=== PATIENT | female | born 1955 | race Caucasian/White ===

== ENCOUNTER 2018-10-05 06:52 | Day surgery (SDC) | payer OTHER ==
[2018-10-03 16:07] VITALS: BMI 37.3
[~2018-10-05] VITALS: Ht 147.3 cm; Wt 79.8 kg
[2018-10-05] VITALS (12 sets, daily range): BP systolic 135–162; BP diastolic 58–101; PULSE 64–79; RESP 15–29; Ht 147.3 cm; Wt 79.8 kg
[~2018-10-05 06:52] MED LIST: CEFAZOLIN 2 GM/50 ML (PMX) 50 ML IVPB SCH; SOD CHLORIDE 0.9% 1,000 ML IV SCH
[2018-10-05] MEDS ORDERED: SOD CHLORIDE 0.9% 1,000 ML IV SCH (07:00)
[2018-10-05] MEDS ORDERED: CEFAZOLIN 2 GM/50 ML (PMX) 50 ML IVPB ONE (07:00)
[2018-10-05] MEDS ORDERED: OMEP20CA16 PO (08:04)
[2018-10-05] MEDS ORDERED: IBUP200C11 PO (08:04)
[2018-10-05] MEDS ORDERED: HYDR-3980 PO (08:04)
--- NOTE | 2018-10-05 10:05 | PREAC ---
Date/Time of Note Date/Time of Note DATE: 10/05/18 TIME: 10:04 Anesthesia Eval and Record Evaluation Time Pre-Procedure Interview DATE: 10/05/18 TIME: 10:04 Age 63 Sex female NPO: 8 hrs Preoperative diagnosis incisional hernia Planned procedure lap hernia repair Past Medical History Past Medical History: Includes Cardio: Dyslipidemia Musculoskeletal: Osteoarthritis GI: GERD, Morbid obesity Psych: Depression, Anxiety Surgery & Anesthesia Issues No known issue Meds Anticoagulation: No Beta Simeon within 24 hr: No Reason Beta Simeon not given: Pt. not on B-Simeon Reported Medications Omeprazole* (Omeprazole*) 20 Mg Capsule.dr, 20 MG PO DAILY, #30 CAP 10/05/18 Hydrocodone/Acetaminophen ([place] 10-325 Tablet) 1 Each Tablet, 1 EACH PO QID for PAIN, TAB 10/05/18 Ibuprofen* (Advil*) 200 Mg Capsule, 200 MG PO Q6H PRN for PAIN, CAP 10/05/18 Current Medications Sodium Chloride 1,000 ml @ 75 mls/hr [id number] IV ; Start 10/05/18 at 07:00; Stop 10/05/18 at 20:19 Influenza Virus Vaccine Quadrival (Fluzone) 0.5 ml ONCE ONCE IM* ; Start 10/08/18 at 10:00; Stop 10/08/18 at 10:01 Meds reviewed: Yes Allergies Coded Allergies: No Known Allergy (Unverified , 10/05/18) Allergies Reviewed: Yes Labs/Studies Labs Reviewed: Reviewed by anesthesiologist test: Negative Studies: ECG Pre-procedure Exam Last vitals Vital Signs Date Temp Pulse Resp B/P (MAP) Pulse Ox O2 O2 Flow FiO2 Time Delivery Rate 10/05/18 96.3 79 16 146/61 96 07:57 (89) Airway: Adequate mouth opening, Adequate thyromental dist Mallampati: Mallampati II Teeth: Normal Lung: Normal Heart: Normal ASA Physical Status ASA physical status: 3 Emergency: None Planned Anesthetic General/MAC: ETT Nerve block: TAP (bilateral) Pre-operative Attestations Prior to commencing anesthesia and surgery, the patient was re-evaluated, there was verification of: *The patient's identity *The results of appropriate recent lab work and preoperative vital signs *The above evaluation not changing prior to induction *Anesthetic plan, risk benefits, alternative and complications discussed with patient/family; questions answered; patient/family understands, accepts and wishes to proceed. DAMIAN WHEAT Oct 05, 2018 10:05
[2018-10-05] MEDS ORDERED: POLYMYXIN/BACITRACIN 1L IRRIG ONE (10:06)
[2018-10-05] MEDS ORDERED: ROPIVACAINE 0.5 % 30 ML VIAL ONE (10:11)
[2018-10-05] MEDS ORDERED: FENTAnyl 50 MCG/ML VIAL ONE (10:11)
[2018-10-05] MEDS ORDERED: DIPHENHYDRAMINE 50 MG INJ IV PRN (10:30)
[2018-10-05] MEDS ORDERED: ALBUTEROL 0.083% (NEB) 2.5 MG/3 ML AMP HHN PRN (10:30)
[2018-10-05] MEDS ORDERED: ONDANSETRON 4 MG INJ IV PRN (10:30)
[2018-10-05] MEDS ORDERED: OXYCODONE/ACETAMINOPHEN (5/325) TAB PO PRN (10:30)
[2018-10-05] MEDS ORDERED: METOCLOPRAMIDE 10 MG INJ IV PRN (10:30)
[2018-10-05] MEDS ORDERED: FENTAnyl 50 MCG/ML VIAL IV PRN ×3 (10:30)
[2018-10-05] MEDS ORDERED: HYDROmorphONE 1 MG/5 ML IV SYRINGE IV PRN ×3 (10:30)
[2018-10-05] MEDS ORDERED: MEPERIDINE 25 MG INJ IV PRN (10:30)
[2018-10-05] MEDS ORDERED: LIDOCAINE 2% (SDV) 5 ML INJ ONE (11:00)
[2018-10-05] MEDS ORDERED: DESFLURANE 15 MIN ONE (11:00)
[2018-10-05] MEDS ORDERED: CEFAZOLIN 1 GM INJ ONE (11:03)
[2018-10-05] MEDS ORDERED: GLYCOPYRROLATE 0.4 MG INJ ONE (11:03)
[2018-10-05] MEDS ORDERED: ROCURONIUM 50 MG INJ ONE (11:03)
[2018-10-05] MEDS ORDERED: NEOSTIGMINE 3 MG/3 ML SYRINGE ONE (11:03)
[2018-10-05] MEDS ORDERED: SUCCINYLCHOLINE CHLORIDE 100 MG/5 ML SYG IV ONE (11:03)
[2018-10-05] MEDS ORDERED: PROPOFOL 20 ML ONE (11:03)
[2018-10-05] MEDS ORDERED: LIDOCAINE 100 MG SYRINGE ONE (11:03)
--- NOTE | 2018-10-05 11:09 | OPR ---
Date/Time of Note Date/Time of Note DATE: 10/05/18 TIME: 11:05 Operative Report Procedure Date: Oct 05, 2018 Preoperative Diagnosis incarcerated incisional hernia Postoperative Diagnosis same Operation/Procedure Performed 1. laparoscopic incisional hernia repair 2. implantation of polypropylene 15 x 15 cm mesh 3. laparoscopic lysis of adhesions Surgeon see signature line [employer] Service Attendant Gregory Villareal Anesthesia Type: general Estimated Blood Loss: 0 - 10 ml's Transfusion none Specimen none Grafts/Implants none Complications none Pt Condition Post Procedure: stable Indications This is a 63-year-old female who has an incarcerated incisional hernia. She required surgical repair. Risks alternatives benefits and percent were discussed the patient. Patient expresses understanding and consents to the operation. Procedure Description Patient is taken to the OR and prepped and draped in usual sterile fashion. Surgical time was performed. IV antibiotics were given. Left upper quadrant 5 mm transverse incision was made with a 15 blade. Using a 5 mm optical trocar optical entry is performed. Pneumoperitoneum is established. Left flank 12 mm optical trochars placed under direct visualization. Left lower quadrant 5 mm optical trochars placed under direct position. Upon initial inspection there is incarcerated hernia contents in the midepigastric area. Lap scopic lysis of adhesions was performed to allow mobilization of the adhesions. The falciform ligament is also then manually reduced. The falciform ligament was further divi ded superiorly to allow good underlay mesh approximation. The primary defect is identified the fascial edges were freshened. The primary defect was closed with a #1 interrupted Vicryl with Endo Close and laparoscopic techniques. After primary closure of the defect underlay mesh with polypropylene mesh 15 x 15 cm is placed with secure strap. Approximate 4-5 cm coverage in all directions was ensured. Good hemostasis was established. All ports removed under direct position. Skin was closed and skin marta. A tap block was provided by the anesthesiologist. Dry dressings were applied. Vaishnavi QUESADA Oct 05, 2018 11:09
[2018-10-05] MEDS ORDERED: HYDROCODONE/APAP (5/325) TAB PO ONE (11:30)
--- NOTE | 2018-10-05 12:12 | PAC ---
Date/Time of Note Date/Time of Note DATE: 10/05/18 TIME: 12:12 Post-Anesthesia Notes Post-Anesthesia Note Last documented vital signs Vital Signs Date Temp Pulse Resp B/P (MAP) Pulse Ox O2 O2 Flow FiO2 Time Delivery Rate 10/05/18 Simple 10.0 11:55 Mask 10/05/18 68 18 154/67 99 11:47 (96) 10/05/18 98.2 11:21 Activity: WNL Respiratory function: WNL Cardiovascular function: WNL Mental status: Baseline Pain reasonably controlled: Yes Hydration appropriate: Yes Nausea/Vomiting absent: Yes DAMIAN WHEAT Oct 05, 2018 12:12
--- NOTE | 2018-10-05 13:44 | PAC ---
Date/Time of Note Date/Time of Note DATE: 10/05/18 TIME: 13:44 Post-Anesthesia Notes Post-Anesthesia Note Last documented vital signs Vital Signs Date Temp Pulse Resp B/P (MAP) Pulse Ox O2 O2 Flow FiO2 Time Delivery Rate 10/05/18 68 23 135/69 99 Mask 10.0 12:07 (91) 10/05/18 98.2 11:21 Activity: WNL Respiratory function: WNL Cardiovascular function: WNL Mental status: Baseline Pain reasonably controlled: Yes Hydration appropriate: Yes Nausea/Vomiting absent: Yes DAMIAN WHEAT Oct 05, 2018 13:44
== END 2018-10-05 15:25 | disposition home or self-care (01) ==
LOC: SDS 06:52
PROVIDERS: ATTEND Surgery
DX: K43.0 Incisional hernia with obstruction, without gangrene (principal); E78.5 Hyperlipidemia, unspecified
CPT/HCPCS: 49655; J0690; J1170; J2001; J2175; J2405; J2710; J2795; J3010